=== PATIENT | female | born 1975 | race African-American/Black ===

== ENCOUNTER 2021-04-05 19:20 | Emergency (ER) | payer OTHER, SELFPAY ==
[2021-04-05] VITALS (10 sets, daily range): BP systolic 124–152; BP diastolic 66–90; PULSE 75–108; RESP 16–28; TEMP 36.3–37.2; O2SAT 98–100
--- NOTE | ~2021-04-05 | XR_ITS ---
EXAMINATION: XR shoulder LT min 2V DATE: 04/05/2021 21:19 INDICATION: Left shoulder dislocation status post reduction. TECHNIQUE: 2 views of left shoulder on 3 radiographs were obtained. COMPARISON: Left shoulder radiographs at 7:30 PM FINDINGS: Bone alignment is normal. There is a nondisplaced fracture of greater trochanter of proxima l left humerus. Glenohumeral joint is normal. There is mild acromioclavicular joint osteoarthritis. IMPRESSION: 1. One-part fracture of proximal left humerus. Reviewed, dictated and finalized at location A.
--- NOTE | ~2021-04-05 | XR_ITS ---
EXAMINATION: XR shoulder LT min 2V DATE: 04/05/2021 19:57 INDICATION: Left shoulder injury. TECHNIQUE: 4 views of left shoulder were obtained. COMPARISON: None. FINDINGS: There is anterior dislocation of humeral head with respect to glenoid. There is a displaced fracture of the greater tuberosity of proximal humerus. An os acromiale is noted. There is mild oste oarthritis of acromioclavicular joint. IMPRESSION: 1. Anterior left shoulder dislocation. 2. Displaced fracture of greater tuberosity of proximal left humerus. Reviewed, dictated and finalized at location A.
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
--- NOTE | 2021-04-05 20:29 | PC.NURSE ---
Updated pt friend Ady per pt request.
--- NOTE | 2021-04-05 20:33 | PC.NURSE ---
Updated grandmother per pt request.
[2021-04-05] MEDS: HYDROmorphone HCL INJ (*CRX) 1 MG/ML SYR IV PUSH (20:45)
[2021-04-05] MEDS: ONDANSETRON INJ 4 MG/2 ML VIAL IV PUSH (20:45)
--- NOTE | 2021-04-05 21:23 | PC.NURSE ---
Propofol administered by EDP Dr. Rangel during moderate sedation procedure. 70 mg administered at 2104, 30mg at 2106, and 30 mg administered at 2108.
== END 2021-04-05 22:13 | disposition home or self-care (01) ==
PROVIDERS: Emergency Provider General Practice
DX: S43.005A Unspecified dislocation of left shoulder joint, initial encounter (principal); S42.255A Nondisplaced fracture of greater tuberosity of left humerus, initial encounter for closed fracture; V68.0XXA Driver of heavy transport vehicle injured in noncollision transport accident in nontraffic accident, initial encounter
CPT/HCPCS: 23650; 73030; 96374; 96375; 99285; A4565; J1170; J2405; J2704; J7030